=== PATIENT | male | born 1995 | race Caucasian/White ===

== ENCOUNTER 2019-01-16 17:08 | Emergency (ER) | payer MEDICAID ==
[~2019-01-16] VITALS: Ht 165.1 cm; Wt 74.4 kg
[~2019-01-16 17:08] MED LIST: ACET-141 PO; METH750T93 PO
[2019-01-16 17:21] VITALS: BP 113/60; PULSE 74; RESP 18; Ht 165.1 cm; Wt 74.4 kg
== END 2019-01-16 19:38 | disposition home or self-care (01) ==
LOC: E/R 17:08
DX: M79.632 Pain in left forearm (principal)
CPT/HCPCS: 71045; 73090; Z7502